=== PATIENT | female | born 1995 | race African-American/Black ===

== ENCOUNTER 2017-01-20 15:12 | Emergency (ER) | payer OTHER ==
[~2017-01-20] VITALS: Ht 160 cm; Wt 68.2 kg
[2017-01-20 15:13] VITALS: BP 132/87
[2017-01-20] MEDS ORDERED: NAPROXEN 250 MG TAB PO ONE (16:15)
--- NOTE | 2017-01-20 16:47 | REP ---
Clinical: Trauma. Technique: Neutral and frog lateral views of the left hip. Findings: No acute fracture dislocation. Skeletal structures, joint spaces, and surrounding soft tissues appear normal. Impression: No acute fracture or dislocation. Signed by Augustine Cochran MD 01/20/2017 04:39 P
--- NOTE | 2017-01-20 16:49 | REP ---
Clinical: Trauma. Technique: Three oblique views of the left hemithorax. Findings: Multiple views of the left hemithorax demonstrates no obvious acute rib fracture or pathology. Impression: Normal left rib series Signed by Augustine Cochran MD 01/20/2017 04:40 P
[2017-01-20] MEDS ORDERED: ULTR50TA8 PO ×2 (17:03→17:07)
== END 2017-01-20 17:21 | disposition home or self-care (01) ==
LOC: M ED 15:12
DX: S20.212A Contusion of left front wall of thorax, initial encounter (principal); S80.02XA Contusion of left knee, initial encounter; S70.02XA Contusion of left hip, initial encounter; Y04.8XXA Assault by other bodily force, initial encounter; Y92.89 Other specified places as the place of occurrence of the external cause; Y93.89 Activity, other specified; Y99.8 Other external cause status; F17.210 Nicotine dependence, cigarettes, uncomplicated; Z91.013 Allergy to seafood; Z91.040 Latex allergy status; Z91.048 Other nonmedicinal substance allergy status

== ENCOUNTER 2017-03-28 13:00 | Outpatient (RCR) | payer OTHER ==
[~2017-03-28 13:00] MED LIST: ULTR50TA8 PO
== END 2017-04-05 ==
LOC: M ST 13:00
PROVIDERS: ATTEND Otolaryngology
DX: Z51.89 Encounter for other specified aftercare (principal); J38.2 Nodules of vocal cords

== ENCOUNTER 2017-11-30 10:57 | Emergency (ER) | payer OTHER ==
[2017-11-30] MEDS: METOCLOPRAMIDE INJ 10MG/2ML VIAL (J2765) IV (11:47)
[2017-11-30] MEDS: NS 1,000 ML IV (11:47)
[2017-11-30 12:01] LABS: BASO % 0.2 % (0.0-1.0); EOS # 0.1 10^3/uL (0.0-0.50); EOS % 0.7 % (0.0-3.0); HEMATOCRIT 35.5 % (36.0-47.0); HEMOGLOBIN 12.2 g/dl (12.0-15.5); IMMATURE GRANULOCYTE % 0.2 % (0-3.0); LYMPH # 1.7 10^3/uL (1.5-6.5); LYMPH % 20.1 % (24.0-44.0); MEAN CORPUSCULAR HEMOGLOBIN 31.9 pg (27.0-33.0); MEAN CORPUSCULAR HGB CONC 34.4 g/dl (32.0-36.5); MEAN CORPUSCULAR VOLUME 92.7 fl (80.0-96.0); MONO # 0.8 10^3/uL (0.0-0.8); MONO % 9.5 % (0.0-5.0); NEUTROPHILS # 5.8 10^3/uL (1.8-7.7); NEUTROPHILS % 69.3 % (36.0-66.0); PLATELET COUNT, AUTOMATED 163 10^3/uL (150-450); RED BLOOD COUNT 3.83 10^6/uL (4.00-5.40); RED CELL DISTRIBUTION WIDTH 12.3 % (11.5-14.5); WHITE BLOOD COUNT 8.3 10^3/uL (4.0-10.0)
[2017-11-30 12:09] LABS: KETONE, URINE AUTO RFX NEGATIVE (NEGATIVE); LEUKOCYTE ESTERASE UR AUTO RFX NEGATIVE (NEGATIVE); MUCUS, URINE RFX MODERATE (NEGATIVE); NITRITE, URINE AUTO RFX NEGATIVE (NEGATIVE); RBC, URINE AUTO RFX 2 /HPF (0-3); SPECIFIC GRAVITY UR AUTO RFX 1.025 (1.002-1.035); SQUAM EPITHELIAL CELL UR AURFX 1 /HPF (0-6); WBC, URINE AUTO RFX 2 /HPF (0-3)
[2017-11-30 12:40] LABS: ANION GAP 10 MEQ/L (8-16); BLOOD UREA NITROGEN 13 MG/DL (7-18); CALCIUM LEVEL 8.6 MG/DL (8.5-10.1); CARBON DIOXIDE LEVEL 21 MEQ/L (21-32); CHLORIDE LEVEL 107 MEQ/L (98-107); GLOMERULAR FILTRATION RATE > 60.0 (>60); GLUCOSE, FASTING 74 MG/DL (70-100); HCG, SERUM QUANTITATIVE 47115 MIU/ML; POTASSIUM SERUM 3.9 MEQ/L (3.5-5.1); SODIUM LEVEL 138 MEQ/L (136-145)
== END 2017-11-30 13:01 | disposition home or self-care (01) ==
LOC: M ED 10:57
DX: O26.891 Other specified pregnancy related conditions, first trimester (principal); R11.0 Nausea; R51 Headache; Z3A.12 12 weeks gestation of pregnancy; Z88.8 Allergy status to other drugs, medicaments and biological substances; Z91.040 Latex allergy status; Z91.013 Allergy to seafood
CPT/HCPCS: J2765

== ENCOUNTER 2018-01-03 10:12 | Emergency (ER) | payer OTHER ==
[2018-01-03 11:03] LABS: BASO % 0.1 % (0.0-1.0); EOS # 0.1 10^3/uL (0.0-0.50); EOS % 0.8 % (0.0-3.0); HEMATOCRIT 35.9 % (36.0-47.0); IMMATURE GRANULOCYTE % 0.3 % (0-3.0); LYMPH # 1.6 10^3/uL (1.5-6.5); LYMPH % 18.4 % (24.0-44.0); MEAN CORPUSCULAR HEMOGLOBIN 31.7 pg (27.0-33.0); MEAN CORPUSCULAR HGB CONC 33.4 g/dl (32.0-36.5); MEAN CORPUSCULAR VOLUME 94.7 fl (80.0-96.0); MONO # 0.5 10^3/uL (0.0-0.8); MONO % 6.1 % (0.0-5.0); NEUTROPHILS # 6.6 10^3/uL (1.8-7.7); NEUTROPHILS % 74.3 % (36.0-66.0); PLATELET COUNT, AUTOMATED 158 10^3/uL (150-450); RED BLOOD COUNT 3.79 10^6/uL (4.00-5.40); RED CELL DISTRIBUTION WIDTH 12.6 % (11.5-14.5); WHITE BLOOD COUNT 8.9 10^3/uL (4.0-10.0)
[2018-01-03 11:05] LABS: KETONE, URINE AUTO RFX NEGATIVE (NEGATIVE); LEUKOCYTE ESTERASE UR AUTO RFX NEGATIVE (NEGATIVE); MUCUS, URINE RFX SMALL (NEGATIVE); NITRITE, URINE AUTO RFX NEGATIVE (NEGATIVE); RBC, URINE AUTO RFX 0 /HPF (0-3); SPECIFIC GRAVITY UR AUTO RFX 1.011 (1.002-1.035); SQUAM EPITHELIAL CELL UR AURFX 0 /HPF (0-6); WBC, URINE AUTO RFX 1 /HPF (0-3)
[2018-01-03 11:36] LABS: ALBUMIN 3.2 GM/DL (3.2-5.2); ALBUMIN/GLOBULIN RATIO 0.84 (1.00-1.93); ALKALINE PHOSPHATASE 36 U/L (45-117); ALT/SGPT 15 U/L (12-78); ANION GAP 11 MEQ/L (8-16); AST/SGOT 10 U/L (7-37); BILIRUBIN,DIRECT 0.1 MG/DL (0.0-0.2); BILIRUBIN,TOTAL 0.5 MG/DL (0.2-1.0); BLOOD UREA NITROGEN 9 MG/DL (7-18); CALCIUM LEVEL 8.4 MG/DL (8.5-10.1); CARBON DIOXIDE LEVEL 23 MEQ/L (21-32); CHLORIDE LEVEL 107 MEQ/L (98-107); CREATININE FOR GFR 0.67 MG/DL (0.55-1.30); GLOMERULAR FILTRATION RATE > 60.0 (>60); GLUCOSE, FASTING 91 MG/DL (70-100); HCG, SERUM QUANTITATIVE 20797 MIU/ML; POTASSIUM SERUM 3.6 MEQ/L (3.5-5.1); SODIUM LEVEL 141 MEQ/L (136-145)
== END 2018-01-03 12:18 | disposition home or self-care (01) ==
LOC: M ED 10:12
DX: O99.89 Other specified diseases and conditions complicating pregnancy, childbirth and the puerperium (principal); K59.00 Constipation, unspecified; Z3A.17 17 weeks gestation of pregnancy; Z91.013 Allergy to seafood; Z88.8 Allergy status to other drugs, medicaments and biological substances
CPT/HCPCS: 76811

== ENCOUNTER 2018-03-07 07:26 | Outpatient (CLI) | payer OTHER | END 2018-03-07 09:00 | disposition home or self-care (01) | LOC: M LDO 07:26 | DX: O26.892 Other specified pregnancy related conditions, second trimester (principal); M54.31 Sciatica, right side; M54.32 Sciatica, left side; Z3A.25 25 weeks gestation of pregnancy | CPT/HCPCS: G0463 ==

== ENCOUNTER 2018-06-14 06:14 | Inpatient (IN) | payer OTHER ==
[~2018-06-14] VITALS: Ht 157.5 cm; Wt 80.0 kg
[2018-06-14] VITALS (52 sets, daily range): BP systolic 82–159; BP diastolic 49–85
[~2018-06-14 06:14] MED LIST changes: +MULTTAB20 PO; +RANI15TA PO; +REGL10TA6 PO
[2018-06-14] MEDS ORDERED: PENICILLIN G POTASSIUM IV 5 MU in D5W MINI-BAG PLUS 100 ML IV STA ×2 (07:25→08:30)
[2018-06-14] MEDS ORDERED: LACTATED RINGER'S 1000 ML IV STA (07:25)
--- NOTE | 2018-06-14 07:38 | HPEPDOC ---
Obstetrical History & Physical General Date of Admission Jun 14, 2018 at 07:24 History of Present Illness 23 y/o at 39+6 with SROM at 0400 clr fluid. Chief Complaint: LOF, term Information Provided By: Patient Care Care: Good Care Dating Final EDC by: LMP, 1st trimester (US) Past Medical History Past Obstetrical History : Past Obstetrical History: [employer] History: No pertinent history Past Medical History Medical History seasonal allergies Surgical History: [place] teeth Family History Significant Family History: No pertinent family hx Social History Marital Status: Family situation: Spouse/partner home Psychosocial History: No pertinent psych hx * Smoker: non-smoker Alcohol: Denies Drugs: denies Abuse Violence Screening Have you been hit/kicked/slapp: No Have you been sexually assault: No Imunizations Tdap status: current Influenza Status: declined Allergies Coded Allergies: Shellfish Allergy (Verified Allergy, Severe, 03/07/18) swelling Iodide (Verified Allergy, Intermediate, rash, 03/07/18) betadine Latex (Verified Allergy, Intermediate, rash, 03/07/18) Medications Scheduled (Multi 27-0.8 mg) 1 Tab Tab, 1 TAB PO DAILY Scheduled PRN Ranitidine Hcl (Zantac) 150 Mg Tab, 1 TAB PO BID PRN for HEARTBURN Physical Examination Physical Examination GENERAL: Alert and oriented times three ABDOMEN: Gravid and non-tender to touch. FETUS: Is vertex (VTX) by sterile vaginal examination (SVE), 3-4/80/2/vtx well applied EXTREMITIES: No edema. Laboratory Data Urine Culture: No Growth Pertinent Laboratoy Data Blood Type: A+ RBC Antibody Screen: Negative HIV: Negative Hepatitis B: Negative Hepatitis C: Unknown Rapid Plasma Reagin: Nonreactive Rubella: Immune Varicella: Immune Chlamydia/Gonorrhea: Negative Group B Streptococcus: Positive Quad Screen Test: Negative Cystic Fibrosis: Negative Glucose Tolerance Test: 114 Anatomy Ultrasound Placenta Location: Anterior Normal Anatomy: Yes Placenta Previa: No Assessment Variability: Moderate Accelerations: Positive Decelerations: None Tocometer Contractions: Yes Frequency: irregular Duration: less than 60 seconds Strength: palpated as mild Assessment/Plan Assessment SROM, clear Plan Admit and orient. 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 Diet: clears Group B Streptococcus (GBS) neg Labs and intravenous (IV) per unit protocol. Counseled on Pitocin and induction of labor (IOL). Lactated Ringers (LR): 125/hr Anticipate normal spontaneous delivery () C-S as appropriate. SBAR to Dr Cabral for care today. SESSIONS,SANTIAGO Denise MD Jun 14, 2018 07:38
[2018-06-14] MEDS ORDERED: [UNRECOGNIZED DRUG - OTHER] PO (07:58)
[2018-06-14] MEDS ORDERED: OMEP40CA2 PO (07:58)
[2018-06-14] MEDS ORDERED: PRIMROSE OIL PV (07:58)
[2018-06-14 08:54] LABS: HEMATOCRIT 31.2 % (36.0-47.0); HEMOGLOBIN 10.1 g/dl (12.0-15.5); MEAN CORPUSCULAR HGB CONC 32.4 g/dl (32.0-36.5); MEAN CORPUSCULAR VOLUME 92.6 fl (80.0-96.0); PLATELET COUNT, AUTOMATED 113 10^3/uL (150-450); RED BLOOD COUNT 3.37 10^6/uL (4.00-5.40); WHITE BLOOD COUNT 8.7 10^3/uL (4.0-10.0)
[2018-06-14] MEDS ORDERED: **PENDING PCN ENTRY XX SCH (09:00)
[2018-06-14] MEDS: LR 1,000 ML IV SCH ×2 (09:10→11:56)
[2018-06-14] MEDS ORDERED: PENICILLIN G POTASSIUM IV 2.5 MU in APPROPRIATE DILUENT 1 EA IV SCH (11:30)
[2018-06-14] MEDS ORDERED: LR 1,000 ML IV SCH (11:35)
--- NOTE | 2018-06-14 11:43 | IPNPDOC ---
Text Note Date of Service The patient was seen on 06/14/18. NOTE SBAR received from Dr. Mathews. Ms. Grimaldo is a 23 yo at 39+6 weeks who was admitted this AM after SROM, clear fluid at ~0400. Her cervix was 3-4/80-2 on admission. Contractions have spaced on toco. FHR remains Cat I. Cervix: unchanged at 3-4/80/-2. Posterior. Ms. Grimaldo has been ruptured for >7hours. Contractions have spaced and she has made no cervical change. I recommended pitocin augmentation. She is in agreement. Epidural if and when patient desires. All patient questions answered. DO Misha VS,Cathy, I+O VS, Cathy, I+O Laboratory Tests 06/14/18 08:29 Red Blood Count 3.37 L, Mean Corpuscular Volume 92.6, Mean Corpuscular Hemoglobin 30.0, Mean Corpuscular Hemoglobin Concent 32.4, Red Cell Distribution Width 13.3 Vital Signs Date Time Temp Pulse Resp B/P (MAP) Pulse Ox O2 Delivery O2 Flow Rate FiO2 06/14/18 09:12 90 106/70 (82) ANSHUL DO DO Jun 14, 2018 11:43
[2018-06-14] MEDS ORDERED: OXYTOCIN DRIP 30 UNITS in APPROPRIATE DILUENT 1 EA IV SCH ×2 (11:45→21:38)
[2018-06-14] MEDS ORDERED: FENTANYL 2MCG/ML ROPIVACAINE 0.2% IN 0.9% NACL 100ML IVBAG As Ordered ONE (12:12)
[2018-06-14] MEDS: PENICILLIN G POTASSIUM IV 2.5 MU in APPROPRIATE DILUENT 1 EA IV SCH ×2 (12:52→16:11)
[2018-06-14] MEDS ORDERED: EPIDURAL COMMENT XX SCH (13:00)
[2018-06-14] MEDS ORDERED: REFRIGERATOR IV KEYS XX PRN (13:00)
[2018-06-14] MEDS ORDERED: ONDANSETRON 4MG/2ML VIAL (J2405) IV PRN ×2 (13:00→21:45)
[2018-06-14] MEDS ORDERED: diphenhydrAMINE INJ 50MG/ML VIAL (J1200) IV PRN (13:00)
[2018-06-14] MEDS: FENTANYL/ROPIVACAINE/NACL BAG 100 ML EPIDURAL SCH ×2 (13:00→19:52)
[2018-06-14] MEDS ORDERED: LACTATED RINGER'S 1000 ML IV PRN (13:00)
[2018-06-14] MEDS ORDERED: EPIDURAL/PCA KEYS XX PRN (13:00)
[2018-06-14] MEDS ORDERED: ePHEDrine SULFATE 25 MG/5 ML(5MG/ML) SYRINGE IV PRN (13:00)
[2018-06-14] MEDS ORDERED: NALOXONE INJ 0.4 MG/1 ML VIAL (J2310) IV PRN (13:00)
--- NOTE | 2018-06-14 17:33 | IPNPDOC ---
Text Note Date of Service The patient was seen on 06/14/18. NOTE Patient comfortable with epidural in place. Variable decels seen on tracing, but moderate variability and +accels. Cervix: 8-9/90/-2 per RN exam. Patient progressing well on pitocin. Continue to titrate to effect. Safe to proceed. DO Misha VS,Cathy, I+O VS, Fishbone, I+O Laboratory Tests 06/14/18 08:29 Red Blood Count 3.37 L, Mean Corpuscular Volume 92.6, Mean Corpuscular Hemoglobin 30.0, Mean Corpuscular Hemoglobin Concent 32.4, Red Cell Distribution Width 13.3 Vital Signs Date Time Temp Pulse Resp B/P (MAP) Pulse Ox O2 Delivery O2 Flow Rate FiO2 06/14/18 13:06 82 06/14/18 13:02 113/68 (83) ANSHUL DO DO Jun 14, 2018 17:33
--- NOTE | 2018-06-14 19:19 | IPNPDOC ---
Text Note Date of Service The patient was seen on 06/14/18. NOTE Patient reporting significantly increased pain and pressure. Cervix: AL/C/+1. FHR Cat I. Ms. Grimaldo is progressing well. Anticipate pushing efforts shortly. DO Misha VS,Cathy, I+O VS, Cathy, I+O Laboratory Tests 06/14/18 08:29 Red Blood Count 3.37 L, Mean Corpuscular Volume 92.6, Mean Corpuscular Hemoglobin 30.0, Mean Corpuscular Hemoglobin Concent 32.4, Red Cell Distribution Width 13.3 Vital Signs Date Time Temp Pulse Resp B/P (MAP) Pulse Ox O2 Delivery O2 Flow Rate FiO2 06/14/18 13:06 82 06/14/18 13:02 113/68 (83) ANSHUL DO DO Jun 14, 2018 19:19
[2018-06-14] MEDS ORDERED: DOCUSATE SODIUM 100 MG CAP PO PRN (21:45)
[2018-06-14] MEDS ORDERED: ACETAMINOPHEN 500 MG TAB PO PRN (21:45)
[2018-06-14] MEDS ORDERED: MEASLES,MUMPS,RUBELLA VACCINE INJ (MMR-II) (90707) SC SCH (21:45)
[2018-06-14] MEDS ORDERED: RHOGAM 300 MCG (1500 IU) INJ (J2790) IM SCH (21:45)
--- NOTE | 2018-06-14 21:47 | DNPDOC ---
[facility] Delivery Note Delivery Note DATE OF DELIVERY: [id number] at 2112 PREDELIVERY DIAGNOSIS: 39-6/7 weeks' gestation and labor. POST DELIVERY DIAGNOSIS: Delivered. PROCEDURE: Spontaneous vaginal delivery WELT EDGE ROUNDER: Dr. Cabral ANESTHESIA: Neuraxial. ESTIMATED BLOOD LOSS: 300 mL. FINDINGS: 7 pound 2 ounce (3230 grams) male infant, Score 9/9 DELIVERY SUMMARY: Presented to room for assessment. Cervix C/C/+2. The bed was broken down and she was prepped for delivery. With excellent pushing effort her delivered. Presentation was LINDA with restitution to ROT. The was a right compound hand with delivery. The left anterior shoulder delivered with gentle guidance followed easily by the remainder of the body. The infant was dried and stimulated on the field and a bulb suction was used. The cried vigorously and was placed on the maternal abdomen. The three vessel cord was then clamped and cut by the FOB. Third stage was spontaneous and it was productive of an intact placenta. The uterine fundus was firmed with massage and pitocin was administered IV bolus. The vagina, cervix, and perineum were inspected. There was a midline 2nd degree laceration and bilateral sublabial lacerations. These were repaired with 3-0 vicryl and 4-0 vicryl suture respectively. There was excellent cosmesis and hemostasis after the repair. The fundus was palpated again and was firm. Sponge, instrument, and needle counts were correct X2. Mother stable when I left the room. DO HI Myers CHRISTOPHER J. DO Jun 14, 2018 21:47
[2018-06-15] MEDS: DIBUCAINE 1% OINTMENT 30GM TOP PRN ×2 (00:16→05:45)
[2018-06-15] MEDS: IBUPROFEN 800 MG TAB PO PRN ×3 (00:16→18:28)
[2018-06-15 06:14] VITALS: BP 130/84
[2018-06-15] MEDS ORDERED: INFLUENZA QUADRIVALENT PF VACCINE 0.5ML SYRINGE (90686) IM ONE (09:00)
[2018-06-15] MEDS: PRENATAL VITAMINS CHEWABLE TABLET PO SCH (09:05)
[2018-06-15 18:44] VITALS: BP 112/56
[2018-06-16 05:51] VITALS: BP 131/65
[2018-06-16] MEDS ORDERED: IBUP-1114 PO (09:09)
[2018-06-16] MEDS ORDERED: MAPA500T2 PO (09:09)
[2018-06-16] MEDS ORDERED: COLA100C5 PO (09:10)
[2018-06-16] MEDS ORDERED: NUPE1OIN2 TOP (09:11)
[2018-06-16] MEDS: PRENATAL VITAMINS CHEWABLE TABLET PO SCH (10:23)
[2018-06-16] MEDS: IBUPROFEN 800 MG TAB PO PRN (10:23)
--- NOTE | 2018-06-17 17:10 | DSES ---
DATE OF ADMISSION: 06/14/2018 DATE OF DISCHARGE: 06/16/2018 This lady is a 23 old 1, now para 1 admitted at 39 and 6/7 weeks of gestation with spontaneous rupture of membranes, had a spontaneous vaginal delivery of a male , 7 pounds, 2 ounces, 3230 grams, scores of 9 and 9 at one and five minutes respectively. Her hemoglobin admitting was 10.1, hematocrit 31.2, and platelets were 113. On discharge, we discussed phlebitis, cystitis, mastitis, endometritis and cellulitis, diet, exercise, pain management, perineal, breast and wound care. She is planning on contraception at her six-week checkup. On discharge, her blood pressure is 131/65, respirations are 15, pulse is 81, and temperature is 98.3. The rest of the examination is unremarkable. She is normocephalic, atraumatic. Neck: Full range of motion. Pupils equal and reactive to light. Distal pulses are symmetric. No evidence of deep vein thrombosis (DVT), pulmonary embolism (PE) or superficial phlebitis. Chest is clear bilaterally to bases. No wheezes or rhonchi. No costovertebral angle (CVA) tenderness. Uterus two below. Lochia is moderate. Four quadrant bowel sounds. Perineum is healing. She has no rashes, lesions or pruritus. No complaints of arthralgia, myalgia, or joint pain. No shortness of breath or dyspnea on exertion. In summary, we have a term gestation, delivered a live male infant, breast-feeding. PLAN: Medications at discharge and six-week checkup. All questions were answered.
== END 2018-06-16 12:00 | disposition home or self-care (01) | DRG 807 ==
LOC: M LDO 06:14 → M LDI 07:24 → M OBS 23:37
PROVIDERS: ADMIT Obstetrics & Gynecology; ATTEND Obstetrics & Gynecology
PROC: 10E0XZZ Delivery of Products of Conception, External Approach (ICD-10-PCS; principal; 2018-06-14)
PROC: 0HQ9XZZ Repair Perineum Skin, External Approach (ICD-10-PCS; 2018-06-14)
DX: O70.1 Second degree perineal laceration during delivery (principal); Z37.0 Single live birth; Z3A.39 39 weeks gestation of pregnancy